=== PATIENT | female | born 1965 | race Caucasian/White ===

== ENCOUNTER 2023-07-15 11:44 | Emergency (ER) | payer OTHER, SELFPAY ==
[2023-07-15 11:56] VITALS: BP 136/60; PULSE 96; RESP 16; TEMP 36.7; O2SAT 95
--- NOTE | 2023-07-15 11:57 | ED.FEMALEGU ---
HPI - Female Genitourinary General Stated complaint: Urinary Problem History of Present Illness HPI Narrative: PATIENT PRESENTS WITH URINARY FREQUENCY AND BURNING NO GROSS HEMATURIA NO FLANK PAIN NO ABDOMINAL PAIN AN NO CONCERN FOR STD Related Data Home Medications Medication Instructions Recorded Confirmed meloxicam 7.5 mg tablet 7.5 mg PO BID PRN Pain 07/15/23 07/15/23 Allergies Allergy/AdvReac Type Severity Reaction Status Date / Time No Known Allergies Allergy Unknown Unverified 07/15/23 12:08 Review of Systems Review of Systems: CONSTITUTIONAL: DENIES FEVER, CHILLS, OR SWEATS. EYES: DENIES VISUAL CHANGES, REDNESS, OR DISCHARGE. ENT: DENIES RHINORRHEA, CONGESTION, SORE THROAT, OR OTALGIA. CARDIOVASCULAR: DENIES CHEST PAIN, PALPITATIONS, OR EDEMA. RESPIRATORY: DENIES COUGH OR DYSPNEA. GASTROINTESTINAL: DENIES ABDOMINAL PAIN, NAUSEA, VOMITING, OR DIARRHEA. GENITOURINARY: DENIES DYSURIA OR HEMATURIA. SKIN: DENIES RASH OR ITCHING. MUSCULOSKELETAL: DENIES BACK PAIN, JOINT PAIN, OR MYALGIA. NEUROLOGIC: DENIES HEADACHE, NUMBNESS, OR WEAKNESS. PSYCHIATRIC: DENIES ANXIETY OR DEPRESSION. PMFSH Comments AT TIME OF SIGNATURE, AGREE WITH NURSING PAST MEDICAL, SURGICAL, SOCIAL AND FAMILY HISTORY. THERE IS NO RELEVANT FAMILY HISTORY PERTINENT TO THE PRESENTING COMPLAINT Exam Narrative: GENERAL: WELL-APPEARING, WELL-NOURISHED, AND IN NO ACUTE DISTRESS. HEAD: NORMOCEPHALIC, ATRAUMATIC. EYES: PERRLA AND EOMI. ENT: NARES CLEAR, NO RHINORRHEA OR EPISTAXIS. MUCOUS MEMBRANES MOIST. NECK: SUPPLE. CHEST: CLEAR TO AUSCULTATION. NO RESPIRATORY DISTRESS. HEART: REGULAR RATE AND RHYTHM. NO MURMUR HEARD. NORMAL PERIPHERAL PULSES. ABDOMEN: SOFT, NONTENDER, NONDISTENDED, NORMAL ACTIVE BOWEL SOUNDS.NO FLANK PAIN EXTREMITIES: NORMAL RANGE OF MOTION. NO EDEMA. SKIN: WARM, DRY, NO RASH. NEURO: NO FOCAL DEFICITS. ALERT AND ORIENTED X3. LUCIANA COMA SCALE EYE OPENING: SPONTANEOUS 4 LUCIANA COMA SCALE MOTOR: OBEYS COMMANDS 6 LUCIANA COMA SCALE VERBAL: ORIENTED 5 LUCIANA COMA SCALE TOTAL 15 Course Course Level of Care: Express Care Visit Discharge Plan Discharge Clinical Impression: Dysuria, Increased urinary frequency, Antibiotic-induced yeast infection Patient Disposition: Home, Self-Care Condition: Stable Instructions: Antibiotic Form Additional Instructions: INCREASE FLUIDS ESPECIALLY CRANBERRY JUICE AND WATER AVOID CAFFEINE AND CARBONATED BEVERAGES ANTIBIOTIC DIRECTED MEDICINE DIRECTED--CAUTIONED IT WILL CAUSE YOUR URINE TO BE BRIGHT ORANGE TYLENOL/IBUPROFEN FOR PAIN OR FEVER FOLLOW-UP WITH HER PRIMARY CARE PROVIDER IF FURTHER PROBLEMS OR CONCERNS RECHECK IF YOU HAVE FEVER OVER 101, NAUSEA AND VOMITING -IF YOU HAVE ANY WORSENING OF SYMPTOMS OR ANY OTHER CONCERNS PLEASE GO TO THE ED IMMEDIATELY. Prescriptions: New phenazopyridine [Pyridium] 200 mg tablet 200 mg PO TID Qty: 6 0RF nitrofurantoin monohyd/m-cryst [Macrobid] 100 mg capsule 100 mg PO Q12H 5 Days Qty: 10 0RF Rx Instructions: must administer with a meal/food fluconazole [Diflucan] 100 mg tablet 100 mg PO ONCE Qty: 2 0RF Rx Instructions: MAY REPEAT IN 72 HOURS IF NEEDED No Action meloxicam 7.5 mg tablet 7.5 mg PO BID PRN (Reason: Pain) Follow-up/Referrals: Zack,MD John [Primary Care Provider] -
== END 2023-07-15 12:10 | disposition home or self-care (01) ==
PROVIDERS: Emergency Provider Nurse Practitioner Family; PCP Internal Medicine
DX: R30.0 Dysuria (principal); R35.0 Frequency of micturition; B37.31 Acute candidiasis of vulva and vagina; T36.95XA Adverse effect of unspecified systemic antibiotic, initial encounter
CPT/HCPCS: 81003; 87086; 99203; G0463